=== PATIENT | female | born 1960 | race Caucasian/White ===

== ENCOUNTER 2021-08-06 11:41 | Inpatient (IN) | payer OTHER ==
[~2021-08-06] VITALS: Ht 170.2 cm; Wt 70.3 kg
[2021-08-06 12:44] LABS: HEMOGLOBIN 13.3 gm/dl (12.3-15.3); RED BLOOD COUNT 4.51 M/UL (4.00-5.10); WHITE BLOOD COUNT 14.2 K/UL (4.5-11.0)
[2021-08-06 13:15] LABS: BUN/CREATININE RATIO 18 (0-10)
[2021-08-06] MEDS ORDERED: VITAMIN B-12250 MCG PO (17:04)
[2021-08-06] MEDS ORDERED: IBU-200200 MG PO (17:04)
--- NOTE | 2021-08-07 12:20 | NUR ---
08/07/211211- NOTIFIED DR. PEREZ THE THE PTS A1C RESULTS ARE 12.7. HE WANTED ME TO CONSULT HOSPITLAIST TO MANAGE. 08/07/21-1214 HOSPITALIST CONSULT PLACED.I CALLED AND NOTIFIED .
[2021-08-08 09:33] LABS: HEMOGLOBIN 11.7 gm/dl (12.3-15.3); RED BLOOD COUNT 4.06 M/UL (4.00-5.10); WHITE BLOOD COUNT 12.2 K/UL (4.5-11.0)
[2021-08-08 10:03] LABS: BUN/CREATININE RATIO 30 (0-10)
[2021-08-08] MEDS ORDERED: LEVOFLOXACIN500 MG PO (17:08)
[2021-08-08] MEDS ORDERED: METRONIDAZOLE500 MG PO (17:08)
[2021-08-08] MEDS ORDERED: HUMULIN 70100 UNIT/2 SC (17:08)
[2021-08-08] MEDS ORDERED: GLUCOPHAGE 500500 MG PO (17:08)
== END 2021-08-08 18:13 | disposition home or self-care (01) | DRG 264 ==
LOC: ER1 11:41 → MED SURG 4 16:17 → CDU 16:17 → MED SURG 4 20:13
PROVIDERS: Internal Medicine Infectious Disease; Physician Assistant; ADMIT Surgery
PROC: 0JBB0ZZ Excision of Perineum Subcutaneous Tissue and Fascia, Open Approach (ICD-10-PCS; principal; 2021-08-06 19:00)
DX: E11.52 Type 2 diabetes mellitus with diabetic peripheral angiopathy with gangrene (principal); K61.0 Anal abscess; I96 Gangrene, not elsewhere classified; T78.40XA Allergy, unspecified, initial encounter; E11.65 Type 2 diabetes mellitus with hyperglycemia; Z20.822 Contact with and (suspected) exposure to COVID-19; T36.8X5A Adverse effect of other systemic antibiotics, initial encounter; Z98.890 Other specified postprocedural states; Z82.49 Family history of ischemic heart disease and other diseases of the circulatory system; Z83.3 Family history of diabetes mellitus; Z88.0 Allergy status to penicillin; Z79.84 Long term (current) use of oral hypoglycemic drugs; Z79.899 Other long term (current) drug therapy
CPT/HCPCS: 80053; 82962; 83036; 85025; 87040; 87070; 87205; 96374; 99285; J1100; J1335; J1956; J2001; J2250; J2405; J2704; J2765; J3010; J3370; J7030; J7050; J7120; Q9967; U0002